=== PATIENT | male | born 1965 | race Caucasian/White ===

== ENCOUNTER 2018-08-30 19:53 | Inpatient (IN) | payer OTHER, SELFPAY ==
[2018-08-30 21:35] LABS: Amphetamine Not Detected (NotDetected); Barbiturates Screen Not Detected (NotDetected); Benzodiazepine Screen Not Detected (NotDetected); Cocaine Metabolite Screen Not Detected (NotDetected); Medtox Reader # READER 4; Methadone Not Detected (NotDetected); Methamphetamine Not Detected (NotDetected); Opiate Screen Not Detected (NotDetected); Oxycodone Screen Not Detected (NotDetected); Phencyclidine (PCP) Not Detected (NotDetected); THC/Cannabinoid Screen Not Detected (NotDetected); Tricyclic Screen Not Detected (NotDetected)
[2018-08-30 21:36] LABS: Medtox Control Line Valid? VALID (VALID)
[2018-08-30] MEDS ORDERED: Acetaminophen 325 MG TAB ONE (22:21)
[2018-08-30] MEDS ORDERED: Calcium Carbonate 500 MG ChewTAB PO PRN (22:37)
[2018-08-30] MEDS: Acetaminophen 325 MG TAB PO PRN (22:39)
[2018-08-31 01:02] VITALS: BMI 23.1
--- NOTE | 2018-08-31 03:56 | HP ---
PRIMARY CARE PHYSICIAN: The patient does not have a primary care physician. CHIEF COMPLAINT: Palpitations and "I almost passed out." HISTORY OF PRESENT ILLNESS: Mr. 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 He felt like he was about to pass out and says that he could barely see. He was taken to the [facility], where he says that the symptoms went away, but then it started happening again and he says that they apparently looked at an EKG and sent him to the emergency room. He went to one of the outside emergency rooms and was sent here for further evaluation. There, it was noted that he was having a narrow complex tachycardia with heart rates up to as high as 200. He says that he was feel pressure in his chest and shortness of breath at the time. He does not really know how long these episodes lasted. He says he has had problems like this before and usually it would happen just once a month, and not last very long, but now it seems like these episodes are becoming more frequent. He says his mother had a very similar episode, which she said was initially hard to find, but apparently she ended up having SVT and had to have her heart "reset" and she has been doing okay since then. The patient also notes some pain in his right leg when he walks, but otherwise no other complaints. REVIEW OF SYSTEMS: All systems were reviewed and are negative except for that mentioned in the history of present illness. PAST MEDICAL HISTORY: Significant for hypertension. PAST SURGICAL HISTORY: He had a compound fracture of his leg, which needed surgical repair as well as hernia surgery and a bone graft. ALLERGIES: NO KNOWN DRUG ALLERGIES. FAMILY HISTORY: Significant for SVT in his mother, grandmother had heart attack, and uncle had an HI on his mother's side. SOCIAL HISTORY: He is , has 4 children. He is from [place]. He smokes about a pack a day for the past 40 years. He is a former drinker. He would like to be a full code. MEDICATIONS: He is on amlodipine 5 mg twice a day. PHYSICAL EXAMINATION: GENERAL: He is alert and oriented. He appears to be in no acute distress. He is well developed and well nourished. VITAL SIGNS: Blood pressure is 116/87, heart rate 73, respiratory rate of 20, and temperature is 98.5. HEENT: His pupils are equal, round, and reactive. Extraocular muscles are intact. His sclerae anicteric. Throat; there is no erythema, no exudates. He does have poor dentition. NECK: There is no adenopathy, no bruits. LUNGS: Clear to auscultation. There is no wheezing, no rales, no rhonchi. CARDIOVASCULAR: He had a normal S1, S2. No S3 or S4. A fairly loud sounding S1, however. ABDOMEN: Soft. It is nontender, nondistended. Positive for bowel sounds. There is no rebound, no guarding. No organomegaly. EXTREMITIES: There is no edema. Dorsalis pedis pulses were diminished bilaterally. The right foot is slightly cooler than the left. The posterior tibials are intact. He had some deformities on the lower leg on the right. NEUROLOGIC: His cranial nerves are intact. Muscle strength is 5/5 in both of his upper and lower extremities. SKIN AND INTEGUMENT: There are no significant skin changes. No rashes. LABORATORY DATA: White blood cell count 11.1, hemoglobin 16.9, hematocrit is 51.2, and platelet count is 224. Sodium 144, potassium 4.1, chloride is 107, CO2 is 27, BUN of 16, creatinine 1.12, and glucose is 108. Urine drug screen is negative. ASSESSMENT: This is a pleasant 53-year-old gentleman who presents to the emergency room with supraventricular tachycardia or a narrow complex tachycardia, which has been fairly persistent off and on; however, it will terminate on its own. He will be admitted to telemetry. Cardiology has already been consulted from the ER. We will get an echocardiogram and give a trial of Cardizem if his heart rate persist; however, if the tachycardia that is persist, however, for right now as long as it has been terminating on his own, we have been instructed by Dr. Goodwin not to initiate any medications at this time. We will also get thyroid function tests as well. Job ID: [id number]
[2018-08-31 05:30] LABS: #Basophils 0.1 thou/uL (0.0-0.2); #Eosinphils 0.5 thou/uL (0.0-0.7); #Lymphocytes 3.1 thou/uL (1.20-3.40); #Monocytes 0.6 thou/uL (0.11-0.59); %Eosinophils 5.3 % (0.0-10.0); %Lymphocytes 32.9 % (21.0-51.0); %Monocytes 6.7 % (0.0-10.0); Hemoglobin 15.2 g/dL (14.0-18.0); Mean Corpuscular HGB CONC 33.6 g/dL (32.0-36.0); Mean Corpuscular Hemoglobin 30.3 pg (27.0-31.0); Mean Corpuscular Volume 90.2 fL (78.0-98.0); Mean Platelet Volume 8.9 fL (7.4-10.4); Platelet Count 216 thou/uL (130-400); RBC Distribution Width 12.5 % (11.5-14.5); Red Blood Cell (RBC) Count 5.02 mill/uL (4.70-6.10); White Blood Cell (WBC) Count 9.3 thou/uL (4.8-10.8)
[2018-08-31 05:52] LABS: Anion Gap 12 mmol/L (10-20); BUN (Urea Nitrogen) 16 mg/dL (8.4-25.7); Calc. Creatinine Clearance 115 mL/min (70-130); Calcium 8.9 mg/dL (7.8-10.44); Carbon Dioxide 23 mmol/L (22-29); Chloride 110 mmol/L (98-107); Estimated GFR-MDRD Greater than 90; Glucose 85 mg/dL (70-105); Potassium 3.9 mmol/L (3.5-5.1); Sodium 141 mmol/L (136-145)
[2018-08-31] MEDS ORDERED: Eucerin (Mineral Oil/Petrolatum,White) 30 gm Jar TOP PRN (07:39)
[2018-08-31] MEDS ORDERED: Loperamide HCl 2 MG CAP PO PRN (07:39)
[2018-08-31] MEDS ORDERED: Ondansetron ODT 4 MG TAB PO PRN (07:39)
[2018-08-31] MEDS ORDERED: Labetalol HCl 100 MG/20 ML VIAL SLOW IVP PRN (07:39)
[2018-08-31] MEDS ORDERED: HYDROcodone/Acetaminophen 5/325 mg Tablet PO PRN (07:39)
[2018-08-31] MEDS ORDERED: Cepastat Lozenges 1 LOZ PO PRN (07:39)
[2018-08-31] MEDS ORDERED: Ondansetron PF 4 MG/2 ML Vial IVP PRN (07:39)
[2018-08-31] MEDS ORDERED: Diabetic Tussin 200 MG/10 ML UDCUP PO PRN (07:39)
[2018-08-31] MEDS ORDERED: Bisacodyl 10 MG SUPP PR PRN (07:39)
[2018-08-31] MEDS ORDERED: Artificial Tears 18 DROP/0.9 ML EA EYE PRN (07:39)
[2018-08-31] MEDS ORDERED: Sodium Chloride 0.65% Nasal 44 ML BOT EA NARE PRN (07:39)
[2018-08-31] MEDS ORDERED: Senokot S 8.6-50 MG TAB PO PRN (07:39)
[2018-08-31] MEDS ORDERED: Zolpidem Tartrate 5 MG TAB PO PRN (07:39)
[2018-08-31] MEDS: Amlodipine 5 MG TAB PO SCH (08:56)
[2018-08-31] MEDS: Famotidine 20 MG TAB PO SCH ×2 (08:57→20:56)
--- NOTE | 2018-08-31 09:54 | PDOC.PN ---
- Subjective Encounter Start Date: 08/31/18 Encounter Start Time: 07:40 -: old records requested/rev Patient seen and examined. No new complaints. No overnight events - Objective Resuscitation Status - Order Detail: 08/30/18 22:28 Resuscitation Status Routine Resuscitation Status: FULL: Full Resuscitation MAR Reviewed: Yes Vital Signs & Weight: Vital Signs (12 hours) Temp Pulse Resp BP Pulse Ox 08/31/18 08:11 97.8 F 65 18 133/86 97 08/31/18 05:00 98.2 F 66 20 109/66 96 08/31/18 01:05 97.6 F 70 20 135/84 97 08/31/18 00:50 97 Weight Weight 175 lb 8 oz Result Diagrams: 08/31/18 04:45 08/31/18 04:45 EKG Reviewed by me: Yes (nsr) Phys Exam - Physical Examination Constitutional: NAD HEENT: PERRLA, moist MMs, sclera anicteric Neck: no JVD, supple Respiratory: no wheezing, no rales, no rhonchi Cardiovascular: RRR, no significant murmur, no rub Gastrointestinal: soft, non-tender, no distention, positive bowel sounds Musculoskeletal: no edema, pulses present Neurological: non-focal, normal sensation, moves all 4 limbs Lymphatic: no nodes Psychiatric: normal affect, A&O x 3 Skin: no rash, normal turgor Dx/Plan (1) Paroxysmal SVT (supraventricular tachycardia) Code(s): I47.1 - SUPRAVENTRICULAR TACHYCARDIA Status: Acute (2) Hypertension Code(s): I10 - ESSENTIAL (PRIMARY) HYPERTENSION Status: Chronic - Plan cont current plan of care * will monitor on tele for another 24 hours * cardiology consulted * further testing will defer to cardiology * medication reviewed as below * symptomatic treatment. Review of Systems - Review of Systems ENT: negative: Ear Pain, Ear Discharge, Nose Pain, Nose Discharge, Nose Congestion, Mouth Pain, Mouth Swelling, Throat Pain, Throat Swelling, Other Respiratory: negative: Cough, Dry, Shortness of Breath, Hemoptysis, SOB with Excertion, Pleuritic Pain, Sputum, Wheezing Cardiovascular: negative: chest pain, palpitations, orthopnea, paroxysmal nocturnal dyspnea, edema, light headedness, other Gastrointestinal: negative: Nausea, Vomiting, Abdominal Pain, Diarrhea, Constipation, Melena, Hematochezia, Other Genitourinary: negative: Dysuria, Frequency, Incontinence, Hematuria, Retention , Other Musculoskeletal: negative: Neck Pain, Shoulder Pain, Arm Pain, Back Pain, Hand Pain, Leg Pain, Foot Pain, Other Skin: negative: Rash, Lesions, Collin, Bruising, Other - Medications/Allergies Allergies/Adverse Reactions: Allergies Allergy/AdvReac Type Severity Reaction Status Date / Time No Known Allergies Allergy Verified 08/31/18 07:32 Medications: Current Medications Acetaminophen (Tylenol) 650 mg PO Q4H PRN PRN Reason: Headache/Fever/Mild Pain (1-3) Last Admin: 08/30/18 22:39 Dose: 650 mg Hydrocodone Bitart/Acetaminophen ([place] 5/325) 1 tab PO Q4H PRN PRN Reason: Moderate Pain (4-6) Amlodipine Besylate (Norvasc) 5 mg PO DAILY [facility] Last Admin: 08/31/18 08:56 Dose: 5 mg Artificial Tears (Tears Naturale) 2 drop EA EYE PRN PRN PRN Reason: Dry Eyes Bisacodyl (Dulcolax) 10 mg NE DAILYPRN PRN PRN Reason: Constipation Calcium Carbonate (Tums) 1,000 mg PO Q4H PRN PRN Reason: Heartburn or Indigestion Enoxaparin Sodium (Lovenox) 40 mg SC 0900 [facility] Famotidine (Pepcid) 20 mg PO BID [facility] Last Admin: 08/31/18 08:57 Dose: Not Given Guaifenesin (Robitussin Sf) 200 mg PO Q4H PRN PRN Reason: Cough Labetalol HCl (Normodyne) 20 mg SLOW IVP Q4H PRN PRN Reason: SBP > 180 and HR >/= 70 Loperamide HCl (Imodium) 2 mg PO PRN PRN PRN Reason: Diarrhea/Loose Stools Mineral Oil/White Petrolatum (Eucerin Cream) 0 gm TOP BIDPRN PRN PRN Reason: Dry Skin Ondansetron HCl (Zofran Odt) 4 mg PO Q6H PRN PRN Reason: Nausea/Vomiting Ondansetron HCl (Zofran) 4 mg IVP Q6H PRN PRN Reason: Nausea/Vomiting Senna/Docusate Sodium (Senokot S) 2 tab PO BIDPRN PRN PRN Reason: Constipation Sodium Chloride ([place] Nasal [place] 0.65%) 0 ml EA NARE QIDPRN PRN PRN Reason: Nasal Congestion Throat Lozenges (Cepastat Lozenges) 1 sonia PO Q2H PRN PRN Reason: Sore Throat Zolpidem Tartrate (Ambien) 5 mg PO HSPRN PRN PRN Reason: Insomnia
[2018-08-31] MEDS ORDERED: Ondansetron PF 4 MG/2 ML Vial ONE (12:40)
[2018-08-31] MEDS ORDERED: Glycopyrrolate 0.2 MG/ML 5 ML SYRINGE ONE (12:40)
[2018-08-31] MEDS ORDERED: PROPOFOL 200 MG/20 ML VIAL ONE (12:40)
[2018-08-31] MEDS: Enoxaparin Sodium 40 MG/0.4 ML SYRINGE SC SCH (13:56)
[2018-08-31] MEDS ORDERED: Heparin 0 ML ONE (15:13)
[2018-08-31] MEDS ORDERED: Fentanyl 100 MCG/2 ML VIAL ONE (15:24)
[2018-08-31] MEDS ORDERED: Midazolam HCl 2 mg/2 ml Vial ONE (15:24)
[2018-08-31] MEDS ORDERED: Propofol 1,000 MG/100 ML VIAL IV ONE (15:26)
[2018-08-31] MEDS ORDERED: Heparin 10,000 UNITS/1 ML VIAL ONE (16:22)
[2018-08-31] MEDS ORDERED: Isoproterenol 0.2 MG/1 ML AMP ONE (16:22)
[2018-08-31] MEDS ORDERED: Promethazine HCl 25 MG/ML VIAL SLOW IVP PRN (17:22)
[2018-08-31] MEDS ORDERED: Promethazine HCl 25 MG/ML VIAL IM PRN (17:22)
[2018-08-31] MEDS ORDERED: Ondansetron HCl/PF 4 MG/2 ML Vial IVP PRN (17:22)
--- NOTE | 2018-08-31 20:31 | EKG ---
Test Reason : S/P CODE GREEN Blood Pressure : / mmHG Vent. Rate : 060 BPM Atrial Rate : 060 BPM P-R Int : 142 ms QRS Dur : 098 ms QT Int : 440 ms P-R-T Axes : 063 051 061 degrees QTc Int : 440 ms Sinus rhythm with Premature atrial complexes Nonspecific ST abnormality Abnormal ECG No previous ECGs available Confirmed by DR. Reymundo ROUSSEAU (3) on 08/31/2018 8:31:11 PM Referred By: NICOLE Confirmed By:DR. Reymundo ROUSSEAU
--- NOTE | 2018-08-31 21:10 | CON ---
DATE OF CONSULTATION: 08/31/2018 REASON FOR CONSULTATION: SVT. HISTORY OF PRESENT ILLNESS: Mr. Wood is a pleasant 53-year-old gentleman admitted for heart racing and palpitations. He has noticed that this has been happening with progressive frequency and duration over the past 3-4 months. He has been under a substantial amount of stress reportedly lately and feels that this is a contributing factor. He is found to have a narrow complex tachycardia with rates between 170 and 200 beats per minute. He also had some associated pressure in his chest and shortness of breath at that time. He endorses that he has had brief episodes, generally less than 30 seconds in the past, but has never had sustained heart racing or palpitations until now. He endorses a strong familial cardiac history and that his mother has arrhythmia issues and that his grandmother from a heart attack, but at an advanced age. REVIEW OF SYSTEMS: CONSTITUTIONAL: Mr. Wood currently denies any fevers, chills, malaise, recent weight loss or weight gain. HEENT: Denies any sore throat, difficulty swallowing, dysphagia, speech changes, vision changes. CARDIOVASCULAR: Positive for recent heart racing, palpitations with associated chest pain. PULMONARY: Denies cough, chronic shortness of breath. Positive for episodes of shortness of breath associated with a heart racing. GI: Denies nausea, vomiting, diarrhea. NEUROLOGIC: Denies speech changes, vision changes, gait instability. PAST MEDICAL HISTORY: Positive for hypertension. PAST SURGICAL HISTORY: Compound fracture of the leg requiring surgical repair as well as hernia surgery and a bone graft. ALLERGIES: NO KNOWN DRUG ALLERGIES. HOME MEDICATIONS: None. FAMILY HISTORY: Positive for cardiac arrhythmias with his mother, grandmother had a heart attack in her 80s. SOCIAL HISTORY: with four children, here temporarily, and lives in [place]. Positive for tobacco use, a 20 pack-year history. No current alcohol intake. PHYSICAL EXAMINATION: VITAL SIGNS: Most recent vital signs temperature 98.3, pulse 66, blood pressure 119/74, respirations 16, oxygen is 97% on room air. GENERAL: Mr. Wood is alert and oriented. Speech is clear. Affect is appropriate. NECK: Supple without jugular venous distention. HEENT: His sclerae are anicteric. EOMs are intact. HEART: His heart rate is with crisp S1-S2 and PMI is nondisplaced. LUNGS: Clear to auscultation bilaterally without wheezes, crackles, or rhonchi. ABDOMEN: Soft and nontender without palpable masses. EXTREMITIES: Warm and dry to touch without clubbing, cyanosis, or edema. NEUROLOGIC: Grossly intact and nonfocal. Gait is not assessed. LABORATORY AND DIAGNOSTIC STUDIES: EKGs and telemetry were all personally reviewed, which currently reflect normal sinus rhythm with normal intervals. He has had on telemetry three episodes of SVT that is likely telecommunications sales representative of AVNRT, all self terminating, the longest episode has been approximately 15 minutes in duration thus far. LABORATORY DATA: Hematology was reviewed and is unremarkable. Chemistry was reviewed, potassium 3.9, creatinine 0.83. Free T4 is 1.32. Toxicology screen was negative. IMPRESSION: 1. Hypertension. 2. 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 RECOMMENDATIONS: We discussed supraventricular tachycardia and the possible abnormal rhythms that this represents. We discussed treatment options including medical management versus EP study and ablation. At this point, he wishes to proceed with an EP study and possible ablation. Risks include hematoma, bleeding at the groin site, bradycardia, arrhythmias, possible need for pacemaker and pericardial effusion and tamponade. He voices understanding and wishes to proceed. He is n.p.o. Ideally, we will proceed with EP study and ablation later today. Schedule permitting, if not today, then we will certainly get him on the schedule for tomorrow. All questions have been answered. I thank you for allowing us to participate in the care of this patient. Job ID: [id number]
--- NOTE | 2018-08-31 23:44 | OP ---
DATE OF PROCEDURE: 08/31/2018 PROCEDURE PERFORMED: Electrophysiology study and radiofrequency ablation. REASON FOR PROCEDURE: Mr. Wood is a 53-year-old man with a history of palpitations for last year. He is admitted with sustained tachycardia which appears to have narrow complex supraventricular tachycardia. He had frequent recurrences with vagal maneuvers seems to have terminated the arrhythmias. The EKG and telemetry strips were suggestive of possible AV cash reentry tachycardia. DESCRIPTION OF PROCEDURE: The patient received propofol by Anesthesia specialist. Left and right femoral veins were prepped, draped, and anesthetized using subcutaneous lidocaine and accessed under ultrasound guidance. On the left side , a 6 and 8-Amharic short sheath were introduced. Through which a octapolar and a decapolar catheter were advanced to the right ventricle, His bundle, right atrium, and also to the coronary sinus position. Pacing, mapping, and recording were performed at each location. The following findings were noted. Baseline cycle length of 930 milliseconds, MT 136 milliseconds, QRS 75 milliseconds, QT 425 milliseconds. AV Wenckebach cycle length was 330 milliseconds. Retrograde Wenckebach cycle length was 320 milliseconds. During rapid atrial pacing, left bundle aberration was noted, but normal HV interval. On the retrograde, VA conduction was concentric, AV cash ERP was 600/220 milliseconds. Gradual prolongation of the AV/AH intervals were noted. Following that, burst atrial pacing was inducing, narrow complex SVT with very short VA timing less than 80 milliseconds, which was suggestive of AV cash reentry tachycardia. Ventricular overdrive pacing was producing VA-VA response. Resynched R2 PVCs terminated the arrhythmia. Through a right femoral 8-Amharic sheath, a 4 mm standard ablation catheter advanced to the right atrium. 3D map of the right atrium was obtained, delineating the coronary sinus, His bundle, and slow pathway area. Slow pathway modification was performed with total of 3 lesions, total duration was about 2 minutes 30 seconds. During the ablation, junctional beats were observed. Following that, Isuprel was administered at 8 mcg. Burst atrial pacing was performed and the improved AV Wenckebach cycle length of 250 milliseconds was seen with burst atrial pacing was unable to reinduce the SVT. The cardiac cine did not seem to demonstrate any change on the cardiac silhouette. The patient tolerated the procedure well. No complications noted. CONCLUSION: 1. Inducible typical AV cash reentry tachycardia. 2. Successful slow pathway eliminated re-inducibility of the SVT. 3. Normal sinus and AV cash function otherwise. 4. Rate-related left bundle branch block is noted. 5. No evidence of accessory pathway. PLAN: Routine post care. Job ID: [id number] MTDD
[2018-09-01] MEDS: Acetaminophen 325 MG TAB PO PRN (07:59)
[2018-09-01] MEDS: Famotidine 20 MG TAB PO SCH (09:11)
[2018-09-01] MEDS: Enoxaparin Sodium 40 MG/0.4 ML SYRINGE SC SCH (09:11)
[2018-09-01] MEDS: Amlodipine 5 MG TAB PO SCH (09:11)
--- NOTE | 2018-09-01 10:48 | DIS ---
DATE OF ADMISSION: 08/30/2018 DATE OF DISCHARGE: 08/31/2018 PRIMARY CARE PHYSICIAN: [facility] Call Admission. DISCHARGE DISPOSITION: Home. PRIMARY DISCHARGE DIAGNOSIS: Paroxysmal supraventricular tachycardia, status post electrophysiology study and radiofrequency ablation. SECONDARY DISCHARGE DIAGNOSIS: Hypertension. PRIMARY PROCEDURE/OPERATION: Radiofrequency ablation and electrophysiologic study. RADIOLOGICAL INVESTIGATION: Chest x-ray normal. Echocardiography pending. SIGNIFICANT LABORATORY DATA: CBC, normal. BMP, normal. Cardiac enzyme, negative. Thyroid function test, normal. Urine drug screen, negative. DISCHARGE MEDICATION: Amlodipine 5 mg p.o. daily. CONTRAINDICATION: None. CODE STATUS: Full code. INPATIENT PRIMARY CARE SALES REPRESENTATIVE: Dr. Castelan, threading machine tender, was consulted while in hospital. TEST RESULT PENDING ON DISCHARGE: None other than echocardiography. DISCHARGE PLAN: Posthospital, the patient will follow up with the primary care physician and threading machine tender. HOSPITAL COURSE: A 53-year-old male with above-mentioned medical problem, who was having paroxysmal palpitation, and he was diagnosed with paroxysmal SVT when he arrived to emergency room in [place]. He was keep getting these type of episodes, and episode was getting worse and that is why he required admission. Please see Dr. Bojorquez's H and P for further detail. The patient had code green because he had prolonged SVT episode and he got symptomatic. We consulted threading machine tender, and they did a radiofrequency ablation after electrophysiologic study. Echocardiography will be done today. The patient is currently asymptomatic, and he is in sinus rhythm. I have seen and examined the patient at bedside today. All his vitals are normal. His physical examination is normal. He wants to go home today. If threading machine tender okay, an echocardiography done. Then, this patient is medically stable for discharge in the evening time. Job ID: [id number]
--- NOTE | 2018-09-01 14:23 | PDOC.CTH ---
Cardiology Progress Note - Subjective EP PROGRESS NOTE: 09/01/18 Seen as follow up post SVt ablation. Feels well. Eager to DC. no complaints today - Objective Vital Signs Temp Pulse Resp BP Pulse Ox 09/01/18 08:00 97.7 F 67 17 130/91 H 99 09/01/18 03:29 98.6 F 64 15 118/77 95 Weight 175 lb 8 oz 08/31/18 09/01/18 09/02/18 06:59 06:59 06:59 Intake Total 150 Output Total 750 Balance -600 - Physical Examination General/Neuro: alert & oriented x3, NAD Neck: carotid US brisk, no JVD present Lungs: CTA, unlabored respirations Heart: PMI normal, RRR Abdomen: NT/ND, soft Other PE findings: bilat groin sites stable - Telemetry Telemetry Rhythm: SR - Labs Result Diagrams: 08/31/18 04:45 08/31/18 04:45 Troponin/CKMB Troponin I 0.020 ng/mL (< 0.028) 08/30/18 20:47 - Assessment/Plan 1. SVT - AVNRT s/p slow pathway modification - EPS on 08/31- no additional arrhythmias revealed 2. Hypertension - per hospitalist OK for DC by EP. recommend he follow up with PCM/ Video Presentation Operator in [facility] ( [place]) and consider TTE given new SVT.
[2018-09-01 15:00] VITALS: BP 119/86; TEMP 97.6
--- NOTE | 2018-09-01 16:16 | EKG ---
Test Reason : Blood Pressure : / mmHG Vent. Rate : 058 BPM Atrial Rate : 058 BPM P-R Int : 140 ms QRS Dur : 104 ms QT Int : 458 ms P-R-T Axes : 056 043 024 degrees QTc Int : 449 ms Sinus bradycardia Minimal voltage criteria for LVH, may be normal variant Borderline ECG When compared with ECG of 31-AUG-2018 13:25, Premature atrial complexes are no longer Present Confirmed by DR. Reymundo ROUSSEAU (3) on 09/01/2018 4:15:37 PM Referred By: HADLEY Confirmed By:DR. Reymundo ROUSSEAU
--- NOTE | 2018-09-01 16:18 | EKG ---
Test Reason : Blood Pressure : / mmHG Vent. Rate : 055 BPM Atrial Rate : 055 BPM P-R Int : 146 ms QRS Dur : 098 ms QT Int : 480 ms P-R-T Axes : 067 050 055 degrees QTc Int : 459 ms Poor data quality, interpretation may be adversely affected Sinus bradycardia Otherwise normal ECG When compared with ECG of 31-AUG-2018 17:38, (Unconfirmed) No significant change was found Confirmed by DR. Reymundo ROUSSEAU (3) on 09/01/2018 4:18:08 PM Referred By: KATIE Confirmed By:DR. Reymundo ROUSSEAU
== END 2018-09-01 13:28 | disposition home or self-care (01) | DRG 274 ==
LOC: ERS 19:53 → ERHOLD 21:13 → 2NO 08-31
PROVIDERS: ADMIT Emergency Medicine; ATTEND Emergency Medicine
PROC: 02583ZZ Destruction of Conduction Mechanism, Percutaneous Approach (ICD-10-PCS; principal; 2018-08-31)
DX: I47.1 Supraventricular tachycardia (principal); I10 Essential (primary) hypertension; F17.210 Nicotine dependence, cigarettes, uncomplicated
CPT/HCPCS: 36415; 36416; 80048; 80306; 84439; 85025; 93005; 93010; 93613; 93623; C1730; C1769; J1644; J1650; J2250; J2405; J2704; J3010